=== PATIENT | female | born 1960 | race Caucasian/White ===

== ENCOUNTER 2020-01-23 11:09 | Inpatient (IN) ==
[2020-01-23] MEDS ORDERED: NS 1,000 ML IV ONE (11:22)
--- NOTE | 2020-01-23 11:29 | PROVIDER DOCUMENTATION ---
HPI-General Adult - General Stated Complaint: CONFUSION/OVERDOSE POSSIBLE PER SON Time Seen by Provider: 01/23/20 11:13 Source: patient, family Allergies/Adverse Reactions: Patient Allergies Allergy/AdvReac Type Severity Reaction Status Date / Time morphine Allergy Intermediate AMS Verified 01/23/20 12:33 Home Medications: Home Medication List Medication Instructions Recorded Confirmed Last Taken Type Estrogens, Conjugated [Premarin] 0.9 mg PO DAILY 09/16/13 11/18/17 11/17/17 09:0 0 History Clonazepam 0.5 mg PO PRN PRN 03/22/17 11/18/17 11/17/17 12:00 History Fluticasone Propion/Salmeterol 1 puff INH BID 03/22/17 11/18/17 11/17/17 09:00 History [Advair 250-50 Diskus] Duloxetine [Cymbalta] 30 mg PO DAILY 11/18/17 11/18/17 11/17/17 09:00 History Lamotrigine 1 each PO DAILY 11/18/17 11/18/17 11/17/17 09:00 History Sumatriptan Succinate [Imitrex] 100 mg PO DIRECTED 11/18/17 11/18/17 Unknown History Zolpidem [Ambien] 10 mg PO QHS 11/18/17 11/18/17 11/17/17 21:00 History Pantoprazole [Protonix] 40 mg PO DAILY@0700 #30 tab 11/20/17 Unknown Rx Sucralfate [Carafate] 1 gm PO 4XDAY #120 tab 11/20/17 Unknown Rx Alprazolam 1 mg PO TID 01/23/20 01/23/20 Unknown History Aripiprazole [Abilify] 5 mg PO DAILY 01/23/20 01/23/20 Unknown History Potassium Chloride 20 meq PO DAILY 01/23/20 01/23/20 Unknown History Sertraline [Zoloft] 50 mg PO DAILY 01/23/20 01/23/20 01/22/20 History Temazepam 30 mg PO HS 01/23/20 01/23/20 Unknown History Topiramate 100 mg PO HS 01/23/20 01/23/20 Unknown History - History of Present Illness -Gen Adult Nature of Presenting Problems: Patient is a 59 yof who presents to the ED with AMS. States, "My son called me this morning and I wasn't making any sense, so he came over and brought me here." Per son, when he got to pt, there were pills scattered all over the table in her house. Pt states she is prescribed Xanax, temazepam, remeron, and abilify. Remembers taking Tylenol this morning but does not remember if or when she took anything else. Does not remember when her son called her. Denies suicidal ideations, denies hx of suicide attempt or overdose. States her pcp has been weaning her off of temazepam. Pt awake, alert, and non-toxic at this time. States she feels confused but denies any other complaints. Review of Systems - Adult - REVIEW OF SYSTEMS - ADULT Constitutional: reports: no symptoms reported Eyes: reports: no symptoms reported Ears, Nose, Mouth & Throat: reports: no symptoms reported Cardiovascular: reports: no symptoms reported Respiratory: reports: no symptoms reported Gastrointestinal: reports: no symptoms reported Genitourinary: reports: no symptoms reported Musculoskeletal: reports: no symptoms reported Integumentary: reports: no symptoms reported Neurological: reports: see HPI Psychiatric: reports: no symptoms reported Endocrine: reports: no symptoms reported Hematologic/Lymphatic: reports: no symptoms reported Allergic/Immunologic: reports: no symptoms reported All Other Systems: Reviewed and Negative Past History - Adult - PAST MEDICAL HISTORY-ADULT Review of Records: reports: Old Records Reviewed, Nursing Assessment Review, Medications Reviewed, Social history reviewed & non-contributory. Major Childhood Illnesses: reports: denies history Cardiovascular: reports: denies history Respiratory: reports: COPD Gastrointestinal: reports: other (h pylori) Obstetrical/Gynecological: reports: denies history Genitourinary: reports: denies history Musculoskeletal: reports: denies history Neurological: reports: denies history Psychiatric: reports: anxiety, depression Endocrine/Immune: reports: denies history Other Conditions: reports: denies history - PRIOR SURGERIES/PROCEDURES Surgical/Procedure History: reports: hysterectomy (partial) - IMMUNIZATION STATUS Childhood Immunizations: See Nurse Assessment Flu Vaccine: See Nurse Assessment - FAMILY HISTORY Family History: reviewed, not pertinent - SOCIAL HISTORY Smoking: cigarettes, greater than 1 pack/day Physical Exam-General - PHYSICAL EXAM-ADULT Initial Vital Signs Reviewed: Yes - CONSTITUTIONAL General Appearance: alert, no apparent distress. negative: lethargic, slow to respond - EYES Eyes: PERRL/EOMI (left pupil sluggish, pupils equal at 4 mm in diameter.), pink conjunctivae - HEAD, EARS, NOSE, MOUTH & THROAT HENMT: normocephalic/atraumatic, moist mucous membranes - NECK Neck: full range of motion, supple, normal inspection - RESPIRATORY Respiratory: chest non-tender, lungs clear, normal breath sounds, no pleuratic chest pain, no respiratory distress, no accessory muscle use - CARDIOVASCULAR Cardiovascular: normal peripheral pulses, regular rate, rhythm, no gallop, no murmur - GASTROINTESTINAL (ABDOMEN) Abdominal Exam: normal bowel sounds, non tender, soft - MUSCULOSKELETAL Back Exam: normal inspection Extremity: normal range of motion, non-tender, normal inspection - SKIN Integumentary: normal color, warm/dry. 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-XII nml as tested, grossly normal, no motor/sensory deficits - PSYCHIATRIC Psych/Mental Status: normal mood/affect, normal thought content, normal thought process, other (alert to self and place, disoriented to time, cannot state who the president is) Progress - PLAN OF CARE/RESULTS Progress/Plan/Lab Results: Orders Category Date Time Status Cardiac Monitoring DIRECTED Care 01/23/20 11:22 Active Nursing- Obtain EKG ONCE Care 01/23/20 11:22 Active CHEST-2 VIEWS [RAD] Stat Exams 01/23/20 11:[address] HEAD W/O CONTRAST [CT] Stat Exams 01/23/20 11:22 Ordered ACETAMINOPHEN [TDM] Stat Lab 01/23/20 11:22 Uncollected ALCOHOL BLOOD Stat Lab 01/23/20 11:22 Uncollected CBC WITH DIFF [HEME] Stat Lab 01/23/20 11:21 Ordered COMPREHENSIVE METABOLIC PANEL [CHEM] Stat Lab 01/23/20 11:21 Uncollected MAGNESIUM [CHEM] Stat Lab 01/23/20 11:22 Uncollected PROTIME WITH INR [COAG] Stat Lab 01/23/20 11:22 Uncollected PTT [COAG] Stat Lab 01/23/20 11:22 Uncollected SALICYLATES [TDM] Stat Lab 01/23/20 11:22 Uncollected TROPONIN T HIGH SENSITIVITY Stat Lab 01/23/20 11:22 Uncollected TSH Stat Lab 01/23/20 11:22 Uncollected UA NIMS W/REFLEX CULT [URINALYSIS] Stat Lab 01/23/20 11:22 Uncollected URINE DRUG SCREEN Stat Lab 01/23/20 11:22 Uncollected VITAMIN B12 Stat Lab 01/23/20 11:22 Uncollected 0.9% Sodium Chloride Inj [Ns] 1,000 ml Med 01/23/20 11:22 Active IV 999 mls/hr EKG [EKG] Stat Ther 01/23/20 11:22 Ordered Result Diagrams: 01/23/20 11:30 01/23/20 11:30 - REASSESSMENT Reassessment #1 Time Reassessed: 12:07 Status: other (Spoke with poison control center who recommends EKG now and in 4 hours, CMP w/ LFTs, tylenol/salicylate levels) Reassessment #2 Time Reassessed: 13:21 Status: other (BP elevated, reassessed pt, pt still disoriented to time, awake, not lethargic. She is in agreement with plan to admit. Pt to be admitted to HPS service for further workup and monitoring.) - XRAY 1 XRAY Study: Chest ([facility] - [address] [facility], [address], [place] [address] [facility] - [address] [place] [address] Department of Imaging Patient: COLBY ARMANDO Date: 01/23/20#: [id number] : 1960DM Status: PRE ERAcct#: [id number] Age/Sex: 59/FRoom/Bed: Loc: ED Ordering Physician: Kat Rojo Fami ly Physician: Sophia Fontana MD Reason for Procedure: AMS Signed EXAM: CHEST-2 VIEWS 01/23/2020 HISTORY: AMS TECHNIQUE: Two views the chest COMMENT: There is no evidence of acute cardiac or pulmonary disease. Compared to 05/17/2016, there has been no appreciable change. IMPRESSION: No acute disease. Electronically signed by Sohail Tracy 01/23/2020 12:02 PM 01/23/20 1202 Interpreting Physician: Sohail Tracy MD Dictated Date/Time: 01/23/20 1202 cc: Kat Rojo; Sophia Fontana MD) - CT/MRI 1 CT Study: Head ([facility] - [address] [facility] [facility], [address], [place] [address] [facility] - [address] [place] [address] Department of Imaging Patient: COLBY ARMANDO Date: 01/23/20#: [id number] : 1960DM Status: PRE ERAcct#: [id number] Age/Sex: 59/FRoom/Bed: Loc: ED Ordering Physician: Kat Rojo Family Physician: Sophia Fontana MD Reason for Procedure: AMS Signed EXAM: CT HEAD W/O CONTRAST 01/23/2020 HISTORY: AMS TECHNIQUE: This exam was performed using automated exposure control, adjustment of mA or kV according to patient size, and/or use of iterative reconstruction technique. COMMENT: There is no evidence of mass effect, bleed, or abnormal extra-axial fluid collection. The visualized paranasal sinuses are clear. The calvarium is intact. IMPRESSION: No evidence of acute intracranial disease. Electronically signed by Sohail Tracy 01/23/2020 12:05 PM 01/23/20 1205 Interpreting Physician: Sohail Tracy MD Dictated Date/Time: 01/23/20 1204 cc: Kat Rojo; Sophia Fontana MD) - CONSULTS/PCP/HOSPITALIST Notification #1 *Consult/PCP/Hospitalist*: TRIXIE Barrientos FINANCIAL ACCOUNTING MANAGER Time Discussed: 13:21 Reason/Comments: admission- AMS Consult Disposition: Admit Departure - Departure Date of Disposition Decision: 01/23/20 Time of Disposition Decision: 13:23 DIAGNOSIS: Elevated blood pressure reading AMS (altered mental status) Qualifiers: Altered mental status type: unspecified Qualified Code(s): R41.82 - Altered mental status, unspecified Disposition: ADMITTED INPATIENT 09 Certified Medical Emergency: Emergent Condition: Stable Referrals and Follow-Ups: Sophia Fontana MD [Primary Care Provider] - - Critical Care Note This patient required my direct & personal management of CC.: No Attestation - Physician/ ELY Attestation Patient care was provided by Advanced Practice Provider:: Yes Advanced Practice Provider:: Kat Rojo Advanced Practice Provider documentation review:: The Mid-level provider documentation, treatment plan and medical decision making was reviewed by the physician who agrees with all treatment and medical decision making by the MLP. The physician spent face to face time with patient:: No Advanced Practice Provider documentation review:: Supervising physician onsite and consulted in the evaluation and care of this patient. The physician did not have a face to face encounter with the patient. - NIH Stroke Scale NIH Type: Initial Evaluation Level of Consciousness: 0-Alert LOC Questions (ask month and age): 1-Answers One Correctly LOC Commands (ask to open & close eyes;make a fist, let go): 0-Obeys Both Correctly Best Gaze (horizontal eye movement): 0-Normal Visual (use finger movement, counting or visual threat): 0-No Visual Loss Facial Palsy (show teeth or raise eyebrows & close eyes tght: 0-Symmetrical Movement Motor Function-left arm: 0-Normal Motor Function-right arm: 0-Normal Motor Function-left le-Normal Motor Function-right le-Normal Limb Ataxia(nytvmf-fhlp-tfgdjx, or heel to alexander): 0-No Ataxia Sensory(pin prick to face,arms,trunk,legs-compare side/side): 0-No Ataxia Best Language(name item/read sentence.Ex-Down to Earth): 0-No Aphasia Dysarthria(Pt read words or say words Ex.Mama,Tip-Top,Thanks: 0-Normal Articulation Extinction and Inattention: 0-Normal
[2020-01-23 12:03] LABS: BASO# 0.05 X1000 (0.0-0.2); BASO% 0.4 % (0.0-0.8); EOS# 0.01 X1000 (0.0-0.7); EOS% 0.1 % (0.0-10.0); HEMATOCRIT 43.2 % (37.0-47.0); HEMOGLOBIN 14.1 g/dL (12.0-16.0); IMM GRAN# 0.04 X1000 (0.0-0.04); IMM GRAN% 0.3 % (0.0-0.5); LYMPH# 1.51 X1000 (1.2-3.4); LYMPH% 12.5 % (20.5-51.1); MCH 29.4 PG (27-31); MCHC 32.6 g/dL (33-37); MONO# 0.53 X1000 (0.11-0.59); MONO% 4.4 % (1.7-9.3); MPV 10.3 FL (7.4-10.4); NEUT# 9.93 X1000 (1.4-6.5); NEUT% 82.3 % (42.2-75.2); PLT 280 X1000 (130-400); RDW 14.1 % (11.5-14.5); WBC 12.07 X1000 (4.8-10.8)
--- NOTE | 2020-01-23 12:05 | Diag Imaging Result Doc PS360 ---
EXAM: CHEST-2 VIEWS 01/23/2020 HISTORY: AMS TECHNIQUE: Two views the chest COMMENT: There is no evidence of acute cardiac or pulmonary disease. Compared to 05/17/2016, there has been no appreciable change. IMPRESSION: No acute disease. Electronically signed by Sohail Tracy 01/23/2020 12:02 PM
--- NOTE | 2020-01-23 12:07 | Diag Imaging Result Doc PS360 ---
EXAM: CT HEAD W/O CONTRAST 01/23/2020 HISTORY: AMS TECHNIQUE: This exam was performed using automated exposure control, adjustment of mA or kV according to patient size, and/or use of iterative reconstruction technique. COMMENT: There is no evidence of mass effect, bleed, or abnormal extra-axial fluid collection. The visualized paranasal sinuses are clear. The calvarium is intact. IMPRESSION: No evidence of acute intracranial disease. Electronically signed by Sohail Tracy 01/23/2020 12:05 PM
[2020-01-23 12:08] LABS: INR 1.06; PROTIME 13.9 Seconds (11.0-16.0); PTT 27.9 Seconds (22.3-41.8)
[2020-01-23 12:17] LABS: ACETAMINOPHEN 9.3 ug/mL (10-30); AGAP 14; ALB/GLOB RATIO 2.3; ALBUMIN 4.4 g/dL (3.5-5.0); ALKALINE PHOSPHATASE 115 U/L (32-104); BUN 12 mg/dL (8-22); CALCIUM 10.1 mg/dL (8.8-10.2); CHLORIDE 99 mmol/L (98-107); COSMO 273; CREATININE 0.9 mg/dL (0.5-0.9); ESTIMATED GFR > 60; GLUCOSE 125 mg/dL (70-104); GOT 22 U/L (10-30); GPT 13 U/L (10-36); MAGNESIUM 1.7 mg/dL (1.5-2.7); POTASSIUM 4.2 mmol/L (3.5-5.1); SALICYLATES < 3.00 mg/dL (3-10); SODIUM 136 mmol/L (136-145); TCO2 23 mmol/L (25-35); TOTAL BILIRUBIN 0.31 mg/dL (0.20-1.00); TOTAL PROTEIN 6.3 g/dL (6.3-8.3)
[2020-01-23 12:28] LABS: URINE SOURCE CLEAN CATCH
[2020-01-23 12:36] LABS: TSH 0.33 uIUmL (0.27-4.20)
[2020-01-23 12:38] LABS: BILIRUBIN URINE NEGATIVE (NEGATIVE); BLOOD URINE SMALL (NEGATIVE); COLOR YELLOW; GLUCOSE URINE NEGATIVE (NEGATIVE); KETONE URINE NEGATIVE (NEGATIVE); LEUKOCYTES URINE NEGATIVE (NEGATIVE); NITRITE URINE NEGATIVE (NEGATIVE); PH URINE 6.5; PROTEIN URINE NEGATIVE (NEGATIVE); SP GRAVITY URINE 1.015; TURBIDITY URINE CLEAR (CLEAR); UROBILINOGEN URINE NORMAL (NORMAL)
[2020-01-23 12:56] LABS: UR AMPHETAMINES QUAL NONE DETECTED (NONE DETECT); UR BARBITUATES QUAL NONE DETECTED (NONE DETECT); UR BENZODIAZEPIN QUAL NONE DETECTED (NONE DETECT); UR CANNABINOIDS QUAL NONE DETECTED (NONE DETECT); UR COCAINE QUAL NONE DETECTED (NONE DETECT); UR METHADONE QUAL NONE DETECTED (NONE DETECT); UR OPIATES QUAL NONE DETECTED (NONE DETECT); UR OXYCODONE QUAL PRESUMPTIVE POSITIVE (NONE DETECT); UR PCP QUAL NONE DETECTED (NONE DETECT)
[2020-01-23 13:05] LABS: UR EPITHELIAL CELLS <10 /HPF (<10); URINE BACTERIA 1+ /HPF; URINE CASTS NONE SEEN; URINE RBC <10 /HPF (<10); URINE WBC <10 /HPF (<10); URINE YEAST NONE SEEN
[2020-01-23 13:06] LABS: URINE CRYSTALS NONE SEEN; URINE SMALL ROUND CELLS NONE SEEN
[2020-01-23] MEDS ORDERED: APRESOLINE IV ONE (13:21)
--- NOTE | 2020-01-23 13:37 | EKG Report ---
Test Performed on : 01/23/2020 12:13:45 PM Test Reason : AMS Blood Pressure : / mmHG Vent. Rate : 084 BPM Atrial Rate : 084 BPM P-R Int : 138 ms QRS Dur : 086 ms QT Int : 384 ms P-R-T Axes : 074 070 051 degrees QTc Int : 453 ms Normal sinus rhythm. Nonspecific ST abnormality Abnormal ECG When compared with ECG of 18-NOV-2017 02:37, No significant change was found Unconfirmed Result
[2020-01-23 15:57] LABS: ACETAMINOPHEN 2.2 ug/mL (10-30)
--- NOTE | 2020-01-23 17:02 | ED EKG INTERP ---
This chart was entered by Morena Elias Scribe, acting as scribe for Doroteo Perez MD. EKG Interpretation - EKG Time of EKG reading by physician:: 12:26 EKG Read and Signed by:: Doroteo Perez EKG Interpretation (*Must complete 3 of following elements*): Abnormal Rate: 84 Rhythm: nsr Cameron: normal QRS: normal ST Wave: non-specific ST changes Attestation - Physician/ ELY Attestation Patient care was provided by Advanced Practice Provider:: Yes Advanced Practice Provider:: Kat Rojo Advanced Practice Provider documentation review:: The Mid-level provider documentation, treatment plan and medical decision making was reviewed by the physician who agrees with all treatment and medical decision making by the P. The physician spent face to face time with patient:: No Advanced Practice Provider documentation review:: Supervising physician onsite and consulted in the evaluation and care of this patient. The physician did not have a face to face encounter with the patient. This chart was documented by the indicated scribe, (Morena Elias Scribe) and accurately reflects the services I performed and decisions made by Ana pike Kent A., MD, as attested by the provider's signature.
[2020-01-23] MEDS ORDERED: TYLENOL PO PRN (17:20)
[2020-01-23] MEDS ORDERED: ZOFRAN IV PRN (17:20)
[2020-01-23] MEDS ORDERED: APRESOLINE IV PRN (17:22)
--- NOTE | 2020-01-23 18:08 | HISTORY AND PHYSICAL ---
ADDENDUM: HISTORY OF PRESENT ILLNESS: Miss Bangura is a 59-year-old female who was brought in today by apparently her son because she was found in a pool of medications. Miss Bangura seems to have history of depression and chronic migraine on multiple psychotropic medications, including temazepam, alprazolam, Abilify, and topiramate. According to the history, she was found with different pills on the floor from these different medications. When I asked Miss Bangura what was going on, she said she just felt like taking her pills, but she did not mean to kill herself or cause any harm to anybody. She is, however, remarkably noncongruent at this point with her thought process and confused. OBJECTIVE: Current vital signs: Blood pressure is 171/108, pulse of 74, respirations 19, temperature 98.4 degrees. General: Miss Bangura is a 59-year-old female. She is in bed. No distress. She is obese with central adiposity. HEENT: Mucosa is pink, slightly dry. Anicteric. Acyanotic. Neck: Supple. Chest: Clear to auscultation. Cardiovascular: Regular rate and rhythm. Abdomen: Soft, distended, nontender. Bowel sounds present. Extremities: No pedal edema. CENTRAL NERVOUS SYSTEM: The patient is awake, alert, and oriented to person. Disoriented to place and time. She is clearly delirious. She denies any suicidal ideations at this point. LABORATORY DATA: Laboratory data has also been reviewed and unremarkable. EKG on admission shows normal sinus rhythm with a rate of 84. No S-T segment abnormality. Normal axis and normal QT interval. UDS shows positive for oxycodone. Acetaminophen level was 9.3 on admission; repeat almost 3 hours later showed 2.2. [place] level is low. No alcohol. ASSESSMENT: 1. Altered mental status associated with delirium. Presumably due to psychotropic medications. So far CT scan of the brain showed no evidence of acute intraparenchymal disease. We are going to admit Miss Bangura for close neurological observation and adequate hydration overnight and re-evaluate her in the morning. 2. History of depression. 3. Migraine. 4. History of tobacco use and abuse with suspicion of underlying chronic obstructive pulmonary disease. Please refer to the details of the history and physical that has been dictated by the ASSEMBLER FITTER in the chart. I have discussed the plan with her. cc: Roderick Quinteros MD
--- NOTE | 2020-01-23 19:00 | HISTORY AND PHYSICAL ---
CHIEF COMPLAINT: Altered mental status. HISTORY OF PRESENT ILLNESS: This is a 59-year-old female who was brought into the emergency room by her son who stated that the patient was altered. At the time of my exam the patient is alone. There are no family members present. I have attempted to call the son and was unable to get him on the phone. So history is taken from the chart and past medical records. According to the patient's triage, the patient's son spoke to the patient over the phone today and stated she did not seem right. He went to check on her and found her sitting at a table with pills spilled out all over the table and brought her in. On arrival to the emergency room in triage, it is documented that the patient took an unknown amount of Klonopin, Xanax, Abilify, Remeron, and Tylenol. The patient stated that she was not trying to hurt herself. She just did this for instant gratification. From the time of arrival to the time that I interviewed the patient, her mental status did deteriorate, according to the nursing staff. She was unable to tell me any events of the day or any past events. I asked her what she did the night before and she asked, "I do not know; you tell me." I asked her did she remember her son bringing her to the hospital. She stated yes. I asked did he bring her in a car or a truck to which she stated, "I don't know; he just brought me in." When I asked her to follow commands or to repeat an action that I had done, she would just answer with what or huh. CT scan of the head revealed no evidence of acute intracranial disease. PAST MEDICAL HISTORY ACCORDING TO THE CHART: 1. Hypertension. 2. Chronic obstructive pulmonary disease. 3. Depression. 4. Migraines. PAST SURGICAL HISTORY: Hysterectomy, cholecystectomy, left hand surgery, and bilateral foot surgery. SOCIAL HISTORY: According to the chart, she smokes 1 pack a day. There is no alcohol or illicit drug use. She was an employee at [employer] in [place]. FAMILY HISTORY: Documented with father having an [place] at the age of 40 and secondary to a stroke. Mother committed suicide with a sister that secondary to an overdose. ALLERGIES: Reportedly morphine. HOME MEDICATIONS: A list will be obtained by the nursing staff. REVIEW OF SYSTEMS: Unable to obtain. PHYSICAL EXAMINATION: GENERAL: This is a 59-year-old female who is sitting up in the stretcher in the emergency room. Very pleasant. Confused. VITAL SIGNS: Blood pressure is 168/90 with a heart rate of 87, respirations are 18, and temperature is 98.4 degrees with room air saturations 97%. EYES: Pupils are equal, round, and react to light. EOMs are intact. Sclerae are anicteric. HEENT: Head is normocephalic, atraumatic. Mucous membranes are moist. NECK: Supple with trachea midline. No JVD. CARDIOVASCULAR: Regular rate and rhythm. S1 and S2 are appreciated. No lower extremity edema. PULMONARY: Breath sounds are clear. No increased work of breathing noted. Chest rise and falls symmetric with respiration. GASTROINTESTINAL: Abdomen is soft, nontender, and nondistended with bowel sounds in all 4 quadrants. NEUROLOGIC: She is awake. She is alert. She is oriented to herself. She is disoriented to place, time, date, or any events. LABORATORIES: WBC is 12.0 with hemoglobin 14.1, hematocrit 43.2, platelets 280,000. Sodium 136, potassium 4.2, BUN 12, creatinine 0.9 with a glucose of 125. Urinalysis is essentially negative. Urine drug screen is presumptive positive for oxycodone. Blood alcohol reveals none detected. STUDIES: CT of the head reveals no evidence of acute intracranial disease. ASSESSMENT: This is a 59-year-old female with: 1. Altered mental status. 2. Elevated blood pressure. 3. Polypharmacy with a possible overuse or overdose of medications with a drug screen positive for oxycodone in a patient who has no history of oxycodone use. PLAN: 1. We will admit the patient to [facility] for close monitoring. 2. Telemetry. 3. Pattern blood. 4. We will do neuro checks. 5. Give hydralazine p.r.n. for blood pressure. 6. Check a CBC, CMP, and magnesium in the morning. 7. EKG in a.m. 8. DVT prophylaxis. We will use SCDs. 9. Gastric acid suppression. We will use Prilosec. 10. Further treatments pending hospital course. Dictated by DG Keyes for Roderick Quinteros MD cc: DG Keyes MD
[2020-01-24 06:23] LABS: BASO# 0.02 X1000 (0.0-0.2); BASO% 0.1 % (0.0-0.8); HEMATOCRIT 43.8 % (37.0-47.0); IMM GRAN# 0.02 X1000 (0.0-0.04); IMM GRAN% 0.1 % (0.0-0.5); LYMPH# 1.57 X1000 (1.2-3.4); LYMPH% 11.4 % (20.5-51.1); MCH 28.7 PG (27-31); MCV 89.9 FL (81-99); MONO# 0.74 X1000 (0.11-0.59); MONO% 5.4 % (1.7-9.3); MPV 10.4 FL (7.4-10.4); NEUT# 11.41 X1000 (1.4-6.5); PLT 307 X1000 (130-400); RBC 4.87 XMIL (4.2-5.4); RDW 14.3 % (11.5-14.5); WBC 13.76 X1000 (4.8-10.8)
[2020-01-24] MEDS: PRILOSEC PO SCH ×2 (06:33→06:34)
[2020-01-24 07:06] LABS: AGAP 17; ALB/GLOB RATIO 1.9; ALBUMIN 4.3 g/dL (3.5-5.0); ALKALINE PHOSPHATASE 107 U/L (32-104); BUN 17 mg/dL (8-22); CALCIUM 9.4 mg/dL (8.8-10.2); CHLORIDE 102 mmol/L (98-107); COSMO 281; CREATININE 0.8 mg/dL (0.5-0.9); ESTIMATED GFR > 60; GLUCOSE 99 mg/dL (70-104); GOT 18 U/L (10-30); GPT 12 U/L (10-36); POTASSIUM 3.6 mmol/L (3.5-5.1); SODIUM 140 mmol/L (136-145); TCO2 21 mmol/L (25-35); TOTAL BILIRUBIN 0.41 mg/dL (0.20-1.00); TOTAL PROTEIN 6.6 g/dL (6.3-8.3)
--- NOTE | 2020-01-24 08:26 | EKG Report ---
Test Performed on : 01/24/2020 06:19:12 AM Test Reason : OVERDOSE Blood Pressure : / mmHG Vent. Rate : 086 BPM Atrial Rate : 086 BPM P-R Int : 140 ms QRS Dur : 078 ms QT Int : 394 ms P-R-T Axes : 076 065 059 degrees QTc Int : 471 ms Normal sinus rhythm. Junctional ST depression, probably normal Borderline ECG When compared with ECG of 23-JAN-2020 15:27, (Unconfirmed) No significant change was found Confirmed by Teodoro YING, Zeb Wong ([id number]) on 01/26/2020 9:24:53 AM
[2020-01-24] MEDS: ZOLOFT PO SCH (09:24)
[2020-01-24] MEDS: XANAX PO SCH (09:24)
[2020-01-24] MEDS: ABILIFY PO SCH (09:24)
--- NOTE | 2020-01-24 15:22 | PROGRESS NOTE ---
DATE: 01/24/2020 SUBJECTIVE: I have seen and examined Ms. Bangura this morning. This morning, Ms. Bangura refers to be doing a lot better. She looked more alert and more engaging. She still has episodes where she is hearing things from the television and she is seeing things out there that do not seems to be real. OBJECTIVE: Vital signs: Blood pressure is 143/81, pulse of 91, respiration is 18, temperature 98.4 degrees. General: Ms. Bangura, 59-year-old female. She is in bed. HEENT: She looks more hydrated with pink and moist mucous membrane. Chest: Clear to auscultation. No crepitations. No rhonchi. Cardiovascular: Regular rate and rhythm. GI: Abdomen was soft, distended but nontender. Bowel sounds present. Extremities: No pedal edema. MANAGER SHIPPING: Patient is awake, alert. She is oriented to person and to place but disoriented to time. She looks to have more rational thought process than yesterday. She still has episodes where she seems to be delusional with erratic behavior. She denies any suicidal ideations at this point. LABORATORY DATA: Has been reviewed, is unremarkable. White cell count is slightly elevated. ASSESSMENT: 1. Altered mental status on presentation secondary to suspected drug-induced encephalopathy. 2. Delusion with background history of depression. 3. History of migraine headaches. 4. Tobacco use and abuse. So this morning, Ms. Bangura is more alert and more rational in her thought process. She still has episode of what appears to be visual and probably auditory hallucination, but otherwise she looks medically more stable than yesterday. Her acetaminophen level yesterday had come down to 2.2. We are going to continue to monitor her for another day. We will get [facility] to evaluate her hopefully tomorrow and then make a decision about her disposition. cc: Roderick Quinteros MD
[2020-01-24] MEDS: RESTORIL PO SCH (20:35)
[2020-01-25] MEDS: PRILOSEC PO SCH (06:19)
[2020-01-25] MEDS: XANAX PO SCH (08:49)
[2020-01-25] MEDS: ZOLOFT PO SCH (08:49)
[2020-01-25] MEDS: ABILIFY PO SCH (08:50)
[2020-01-25] MEDS ORDERED: CALMOSEPTINE OINTMENT TOP PRN (12:29)
--- NOTE | 2020-01-25 14:27 | PROGRESS NOTE ---
DATE: 01/25/2020 SUBJECTIVE: I have seen and examined Ms. Bangura this morning. Mr. Bangura refers to be doing well. More alert, more conversational. She did say she had some diarrhea early on. OBJECTIVE: Vital Signs: Blood pressure is 144/86, pulse of 93, respirations are 17, temperature is 98.3 degrees. General Examination: Ms. Bangura is a 59-year-old, female. She is in bed. No distress. HEENT: Mucosa is pink and moist. Anicteric. Acyanotic. Neck: Supple. Chest: Clear to auscultation. No crepitations. No rhonchi. Cardiovascular: Regular rate and rhythm. No murmurs, no rubs, no gallops. GI: Abdomen is soft, nontender. Bowel sounds are present. There is an old lower midline surgical scar. Extremities: No pedal edema. TRANSMISSION INSPECTOR: The patient is awake, alert, oriented. She does not seem to have any more hallucinations or delusions this morning. Laboratory Data: None for today. ASSESSMENT: 1. Altered mental status on presentation secondary to suspected drug-induced encephalopathy. The patient's mentation significantly improved. 2. History of depression with delusions on admission, resolved. 3. History of migraine headaches. 4. Tobacco use and abuse. 5. Polypharmacy with multiple psychotropic medications. I have advised Ms. Bangura to re-evaluate her medications with her psychiatrist, Dr. Mccollum, and her primary care doctor, Dr. Fontana, to make sure that she is on the right medication and the right doses. cc: Roderick Quinteros MD
[2020-01-25] MEDS: RESTORIL PO SCH (20:25)
[2020-01-26] MEDS: PRILOSEC PO SCH (06:17)
[2020-01-26 07:36] LABS: BASO# 0.02 X1000 (0.0-0.2); BASO% 0.3 % (0.0-0.8); EOS# 0.12 X1000 (0.0-0.7); EOS% 1.6 % (0.0-10.0); HEMATOCRIT 42.7 % (37.0-47.0); HEMOGLOBIN 13.8 g/dL (12.0-16.0); LYMPH# 1.63 X1000 (1.2-3.4); LYMPH% 21.3 % (20.5-51.1); MCH 29.7 PG (27-31); MCHC 32.3 g/dL (33-37); MONO# 0.58 X1000 (0.11-0.59); MONO% 7.6 % (1.7-9.3); NEUT% 69.2 % (42.2-75.2); PLT 247 X1000 (130-400); RBC 4.64 XMIL (4.2-5.4); RDW 14.4 % (11.5-14.5); WBC 7.65 X1000 (4.8-10.8)
[2020-01-26] MEDS: XANAX PO SCH (08:03)
[2020-01-26] MEDS: ABILIFY PO SCH (08:03)
[2020-01-26] MEDS: ZOLOFT PO SCH (08:03)
[2020-01-26 08:06] VITALS: BP 155/94
[2020-01-26 08:28] LABS: ALBUMIN 3.3 g/dL (3.5-5.0); BUN 18 mg/dL (8-22); CALCIUM 9.1 mg/dL (8.8-10.2); CREATININE 0.9 mg/dL (0.5-0.9); ESTIMATED GFR > 60; GLUCOSE 96 mg/dL (70-104); PHOSPHORUS 3.6 mg/dL (2.7-4.5); TCO2 16 mmol/L (25-35)
[2020-01-26 12:38] LABS: CHLORIDE 101 mmol/L (98-107); POTASSIUM 4.1 mmol/L (3.5-5.1); SODIUM 137 mmol/L (136-145)
[2020-01-26 12:39] LABS: AGAP 20
[2020-01-26 12:44] LABS: COSMO 160
--- NOTE | 2020-01-26 20:16 | DISCHARGE SUMMARY ---
ADMISSION DATE: 01/23/2020 DISCHARGE DATE: 01/26/2020 DISPOSITION: Home. FOLLOWUP: 1. Dr. Fontana. 2. Dr. Chuckie Mccollum. CONSULTATION: None. IMAGING STUDIES: Of significant A chest x-ray shows no acute disease. CT scan of the head showed no evidence of acute intracranial disease. ADMISSION DIAGNOSIS: 1. Altered mental status associated with delirium. 2. History of depression. 3. History of tobacco use. DIAGNOSIS AT THE TIME OF DISCHARGE: 1. Altered mental status on presentation secondary to drug-induced encephalopathy. 2. Depression with delusions on admission resolved. 3. History of migraine headaches. 4. Tobacco use and abuse. 5. Polypharmacy with multiple psychotropic medications. DISCHARGE MEDICATIONS: 1. Fluticasone 1 puff b.i.d. 2. Lamotrigine 200 mg daily. 3. Sumatriptan 100 mg p.o. as needed. 4. Pantoprazole 40 mg p.o. daily. 5. Zoloft 50 mg p.o. daily. 6. Temazepam 30 mg p.o. at bedtime. 7. Abilify 5 mg p.o. daily. 8. Topiramate 100 mg p.o. daily. 9. Alprazolam 1 mg p.o. daily. Medication that has been withheld until patient discusses with her outpatient providers include duloxetine, zolpidem, clonazepam. PRESENTING COMPLAINT: Altered mental status. HISTORY OF PRESENTING COMPLAINT: Ms Bangura 59-year-old female with a history of depression, hypertension, came to emergency room because was found to be completely altered. According to the history, the son found her with multiple medications around her, some of them were empty bottles, some of them were just spilled on the floor and she was not communicating as she ought to. She was brought into emergency room because she was very encephalopathic, was admitted for further medical care. HOSPITAL COURSE: Ms Bangura was initially admitted to [facility], was kept NPO, adequately hydrated and monitored on tele on continuous heart monitoring. She did pretty well during the hospital course. Some of her home medications were restarted. Her mentation gradually got better to where it came back to the baseline. This morning she refers to feel a whole lot better. She does not have any more hallucinations or delusional thought. We think she is back to her baseline. We have addressed the need for her to sit down with her outpatient providers to go through the list of all the psychotropic medications that she is on. We found out that Ms. Bangura was on 3 different types of benzodiazepine changes has been done these. Other medications have been adjusted and we have advised that she follows up with Dr. Fontana as well as Dr. Don Mccollum. All the discharge instructions have been discussed with her. She voiced understanding. This morning her vitals stable, blood pressure 155/94, pulse of 88, respiration is 16, temperature 98.3 degrees. She is completely cognizant of everything going around, no more encephalopathic. We think she is back to the baseline, stable to be discharged. TIME SPENT: 34 minutes cc: Sophia Fontana MD [facility]
== END 2020-01-26 13:06 | disposition home or self-care (01) | DRG 917 ==
LOC: ED 11:09 → 2N 11:10 → 3N 01-25 15:28
PROVIDERS: ATTEND Internal Medicine